=== PATIENT | female | born 1935 | race Caucasian/White ===

== ENCOUNTER 2017-02-09 15:33 | Inpatient (IN) | payer MEDICARE, BC ==
[~2017-02-09] VITALS: Ht 167.6 cm; Wt 72.5 kg
[2017-02-09] VITALS (8 sets, daily range): BP systolic 124–201; BP diastolic 61–115; BMI 25.8
[2017-02-09 18:58] LABS: BASOPHILS 0.4 % (0-2); EOSINOPHILS 0.2 % (0-7); HEMATOCRIT 41.4 % (36.0-48.0); HEMOGLOBIN 13.9 g/dL (12-16); IMMATURE GRANULOCYTES 0.3 % (0-5); LYMPHOCYTES 25.9 % (15-50); MCH 33.6 pg (26.0-34.0); MCHC 33.6 g/dL (31.0-37.0); MEAN PLATELET VOLUME 10.2 fL (7.4-10.4); MONOCYTES 8.4 % (2-11); NEUTROPHILS 64.8 % (40-80); PLATELET COUNT 229 10x3/uL (130-400); RBC 4.14 10x6/uL (4.00-5.40); RDW 13.1 % (11.5-14.5); WBC 11.6 10x3/uL (4.8-10.8)
[2017-02-09 19:11] LABS: APTT 41.7 SECONDS (22.8-39.4); INR 3.21 (0.85-1.17); PROTIME 33.1 SECONDS (11.6-15.0)
[2017-02-09 19:16] LABS: ALBUMIN 3.9 g/dL (3.4-5.0); ANION GAP 13.5 mmol/L (8-16); BILIRUBIN - TOTAL 0.5 mg/dL (0.2-1.3); CALCIUM 9.7 mg/dL (8.5-10.1); CARBON DIOXIDE 26.3 mmol/L (21.0-32.0); CREATININE - SERUM 0.8 mg/dL (0.6-1.3); POTASSIUM - SERUM 3.8 mmol/L (3.5-5.1); PROTEIN - SERUM 7.2 g/dL (6.4-8.2)
--- NOTE | 2017-02-09 19:48 | NUR ---
PATIENT ARRIVED VIA STRETCHER FROM ER. PATIENT FELL AT HOME AND HAS A BRUISED LEFT EYE, ALONG WITH LACERATION WITH STITCHES. PATIENT ALERT AND ORIENTED AT THIS TIME. PUPILS ARE ERRLA, 3MM AND BRISK. STRENGTH 5/5 IN ALL EXTREMITIES. DENIES NAUSEA OR VOMMITTING. SEE ADMISSION ASSESSMENT FOR MORE DETAILS. VSS, WILL MONITOR.
[2017-02-09] MEDS ORDERED: COUMADIN5 MG PO (20:07)
[2017-02-09] MEDS ORDERED: METOPROLOL TART25 MG PO (20:08)
[2017-02-09] MEDS ORDERED: SIMBRINZA 1%-0.28 ML EACH EYE (20:09)
[2017-02-09] MEDS ORDERED: XALATAN 0.0052.5 ML EACH EYE (20:09)
[2017-02-09] MEDS ORDERED: SYSTANE 0.3-0.4%5 ML EACH EYE (20:10)
[2017-02-09] MEDS ORDERED: ACETAMINOPHEN500 M1 PO (20:12)
[2017-02-09] MEDS ORDERED: FISH OIL 1,2001 CAP PO (20:12)
[2017-02-09] MEDS ORDERED: MULTIPLE VITAMI1 TA1 PO (20:13)
[2017-02-09] MEDS ORDERED: VITAMIN B-12500 MC1 PO (20:13)
--- NOTE | 2017-02-09 21:00 | NUR ---
NIGHT MEDS GIVEN ALONG WITH PRN BLOOD PRESSURE MEDS. DR LLAMAS CAME BY TO SEE PATIENT, ORDERS RECEIVED.
--- NOTE | 2017-02-09 23:05 | NUR ---
REASSESSMENT COMPLETE, SEE FOR DETAILS. VSS, PATIENT ALERT AND ORIENTED. RESPONDS APPROPIATELY. PUPILS ARE ERRLA, 3MM AND BRISK. DENIES N&V. STRENGTH 5/5 IN EXTREMITIES. DENIES PAIN. SEE FLOWSHEET FOR MORE DETAILS. WILL MONITOR.
[2017-02-10] VITALS (24 sets, daily range): BP systolic 112–159; BP diastolic 53–91; Ht 167.6 cm; Wt 72.5 kg
--- NOTE | 2017-02-10 01:00 | NUR ---
PATIENT RESTING WITH EYES CLOSED. RR DEEP, EVEN, AND NONLABORED. VSS.
--- NOTE | 2017-02-10 02:00 | NUR ---
PATIENT HELPED TO BEDSIDE COMMODE. VOIDED 300CC OF CLEAR YELLOW URINE.
--- NOTE | 2017-02-10 03:00 | NUR ---
REASSESSMENT COMPLETE PER FLOWSHEET, SEE FOR DETAILS. PATIENT A&O X4, PUPILS ARE ERRLA @ 3MM AND BRISK. DENIES N&V. VSS, WILL MONITOR.
--- NOTE | 2017-02-10 05:15 | NUR ---
PRN TYLENOL GIVEN FOR CHRONIC ACHING BACK PAIN.
[2017-02-10 05:16] LABS: BASOPHILS 0.5 % (0-2); EOSINOPHILS 0.8 % (0-7); HEMATOCRIT 38.9 % (36.0-48.0); HEMOGLOBIN 13.1 g/dL (12-16); IMMATURE GRANULOCYTES 0.1 % (0-5); LYMPHOCYTES 19.2 % (15-50); MCH 33.4 pg (26.0-34.0); MCHC 33.7 g/dL (31.0-37.0); MCV 99.2 fL (80.0-100.0); MONOCYTES 13.3 % (2-11); NEUTROPHILS 66.1 % (40-80); PLATELET COUNT 217 10x3/uL (130-400); RBC 3.92 10x6/uL (4.00-5.40); RDW 13.3 % (11.5-14.5); WBC 8.8 10x3/uL (4.8-10.8)
[2017-02-10 05:28] LABS: CALC OSMOLALITY 276 mosm/kg (275-300); CALCIUM 8.8 mg/dL (8.5-10.1); CARBON DIOXIDE 26.4 mmol/L (21.0-32.0); CHLORIDE - SERUM 102 mmol/L (98-107); CREATININE - SERUM 0.6 mg/dL (0.6-1.3); GLUCOSE 98 mg/dL (74-106); POTASSIUM - SERUM 3.5 mmol/L (3.5-5.1); SODIUM 138 mmol/L (136-145); UREA NITROGEN 15 mg/dL (7-18); eGFR NON AFRICAN AMERICAN > 90 mL/min (90-120)
[2017-02-10 05:39] LABS: INR 2.61 (0.85-1.17); PROTIME 28.1 SECONDS (11.6-15.0)
--- NOTE | 2017-02-10 05:58 | NUR ---
PATIENT COMPLAINING OF HAVING NAUSEA. STATES SHE FEELS LIKE SHE IS GETTING IT FROM NOT EATING IN A WHILE. JUICE GIVEN AND SALTINE CRACKERS. DID VOMIT A LITTLE JUICE BACK UP. PRN ZOFRAN GIVEN. WILL MONITOR.
[2017-02-10 13:00] LABS: BASOPHILS 0.1 % (0-2); EOSINOPHILS 0 % (0-7); HEMATOCRIT 36.9 % (36.0-48.0); HEMOGLOBIN 12.4 g/dL (12-16); IMMATURE GRANULOCYTES 0.1 % (0-5); LYMPHOCYTES 16.5 % (15-50); MCH 33.3 pg (26.0-34.0); MCHC 33.6 g/dL (31.0-37.0); MCV 99.2 fL (80.0-100.0); MEAN PLATELET VOLUME 9.9 fL (7.4-10.4); MONOCYTES 9.2 % (2-11); NEUTROPHILS 74.1 % (40-80); PLATELET COUNT 209 10x3/uL (130-400); RBC 3.72 10x6/uL (4.00-5.40); RDW 13.2 % (11.5-14.5); WBC 6.8 10x3/uL (4.8-10.8)
[2017-02-10 13:10] LABS: INR 1.12 (0.85-1.17); PROTIME 14.3 SECONDS (11.6-15.0)
--- NOTE | 2017-02-10 13:53 | NUR ---
TO CT SCANNER PER BED. ATE COUPLE PEANUT BUTTER AND CRACKERS AND FEW SIPS OF LEMON PAUMA DRINK. PO MEDS TAKEN. DR. KING CALLED GOING TO TAKE TO EMERGENCY SURGERY DUE TO INCREASE BLEED IN HEAD. PATIENT NIECE AND GRANDAUGHTER NOTIFIED. PHONE CONSENT RECEIVED. FAMILY HERE NOW. TO OR 1225 PER BED. PATIENT SLEEPY, BUT ALERT AND ORIENTATED. IV PRE OP MEDS GIVEN ORDERED. IV PATENT LEFT WRIST. VOIDED ON BEDSIDE COMMODE ONCE. POOR GAIT, COULD NOT STAND UP STRAIGHT, NEEDS ASSISTANCES OF 2 PEOPLE.
--- NOTE | 2017-02-10 14:40 | HP ---
PATIENT: WALE FRANKLIN MEDICAL RECORD: [id number] ACCOUNT: [id number] [id number] : 33 ADMISSION DATE: 02/09/17 HISTORY AND PHYSICAL EXAMINATION REASON FOR ADMISSION: Fall with head injury. HISTORY OF PRESENT ILLNESS: The patient is an 81-year-old female whose family physician, Dr. Daniel Loja. The patient has a history of chronic atrial fibrillation on Coumadin anticoagulation. She states she tripped in her home on a rug floor interface, falling forward hitting her left supraorbital ridge on the corner of the table. She was stunned, but not knocked out. She had marked bleeding from a laceration and came to the ED on the afternoon. She was evaluated there, found to be on Coumadin and a CT of the brain was performed. It showed a right parietal contrecoup injury subdural hematoma versus contusion. The patient has been neurologically intact, was admitted to the ICU for neuro checks, cardiac monitoring due to her Coumadin coagulopathy. Her INR was over 3. She denies any syncope, said she just simply tripped. PAST MEDICAL HISTORY: Chronic atrial fibrillation, ____ cardioversion times 3 in the past, peptic ulcer disease, anemia, diverticular disease, diet controlled diabetes mellitus, peripheral neuropathy. PAST SURGICAL HISTORY: Had sclerosis therapy of varicose veins in her right leg in the past. She had a colon surgery for a colovesicular fistula, incisional hernia repair, and bilateral cataract surgery, July 2012. FAMILY HISTORY: Positive for diabetes in her parents. One brother with CAD and pacemaker. SOCIAL HISTORY: She is and lives alone. She is a retired business advisor. She does not smoke cigarettes nor does she drink alcohol. CURRENT MEDICATIONS: Coumadin 5 mg daily, metoprolol tartrate 25 mg p.o. b.i.d., Lasix 40 mg p.r.n. edema, Tylenol p.r.n., vitamin B12 of 500 mg daily, fish oil 1200 mg a day, Xalatan 0.005% eyedrops 1 drop at h.s., Systane eye drops t.i.d. and Simbrinza 1.02% drops daily. ALLERGIES: None known. REVIEW OF SYSTEMS: GENERAL: She has felt well. HEENT: She has pain over her left supraorbital ridge from a recent fall, but denies recent headache, visual changes, sinus congestion, sore throat or hearing difficulty. RESPIRATORY: No SOB or cough. No palpitations, exertional chest pain, claudication, or edema. GASTROINTESTINAL: No nausea, vomiting, change in stools or blood per rectum. GENITOURINARY: No incontinence. GYNECOLOGIC: No vaginal bleeding. MUSCULOSKELETAL: Denies arthralgias. PSYCHIATRIC: Denies depressed mood. NEUROLOGIC: No history of head injury, seizures, or memory loss. PHYSICAL EXAMINATION: HISTORY AND PHYSICAL [id number] WALE FRANKLIN VITAL SIGNS: Blood pressure 153/90, heart rate 89 and irregular, weight is 165 pounds. She is afebrile. GENERAL: Alert at this time. HEENT: Normocephalic. She has a recently repaired left supraorbital ridge laceration just below her eyebrows approximately 2-1/2 inches in length. There is mild left periorbital edema. Pupils were equal ____ O.U. Visions intact. Ears clear. Throat unremarkable. NECK: No bruits or masses. CHEST: Clear throughout. HEART: Irregular rate without gallop. ABDOMEN: Soft. EXTREMITIES: 2+ pretibial edema of the knees bilaterally. NEUROLOGICAL: Oriented to person, place, and time. Cranial nerves intact. Gait was not tested. No localizing motor or sensory deficits are appreciated. INTEGUMENT: She has some bruising over her left supraorbital ridge, right shoulder and her base of the right thumb. MUSCULOSKELETAL: She has some pain in the base of the right thumb with good mobility. LABORATORY DATA: INR was over 3. Other lab is currently pending. CT shows contrecoup injury with soft tissue swelling over the left supraorbital ridge and either subdural or contusion in the right parietal area. ASSESSMENT: 1. Fall with head trauma and concussion without loss of consciousness. 2. Contrecoup injury of the brain. 3. Coumadin coagulopathy. 4. Chronic atrial fibrillation. 5. Hypertension. 6. Glaucoma. 7. Diet-controlled type 2 diabetes mellitus, history of peptic ulcer disease. PLAN: The patient admitted to the ICU for monitoring ____. Neurosurgical consult has been obtained. She said she had neurological changes. We will repeat CT emergently. We will give 5 mg of vitamin K to help reduce her INR at this time. TRANSINT:[id number] Voice Confirmation ID: [id number] DOCUMENT ID: [id number] ANABEL LLAMAS MD at 1440 CC: [id number] DICTATION DATE: 02/09/172127 VETERINARY MEAT INSPECTOR: 02/10/17 0350 ADM IN [facility] [address] [place] [address]
--- NOTE | 2017-02-10 14:50 | NUR ---
PT ARROUSES EASILY WHEN CALLED BY NAME. PT VOICED HER FULL NAME, , AND WHERE IS IS. WHEN ASKED IF HURTING ANYWHERE, PT VOICED"NO". WILL CONTINUE TO MONITOR
--- NOTE | 2017-02-10 15:30 | NUR ---
RETURNED FROM RECOVERY PER BED, AWAKES TO VERBAL STIMULI ALERT SKIN WARM AND DRY. DRESSING ON RIGHT SIDE OF HEAD AND ON TOP OF HER HEAD DRY AND INTACT. DENIES PAIN. SLEEPY. ON ROOM AIR. KEEPS REACHING UP AND TOUCHES HER HEAD REMIND HER NOT TO PULL ON DRESSING. WHEAT CATH PATENT DRAINING CLEAR YELLOW URINE. FAMILY HERE. NO NAUSEA. SCD APPLIED MONITOR A FIB. IV LEFT WRIST WITHOUT SWELLING OR REDNESS NS AT 50CC HOUR UNTIL AWAKE ENOUGH TO TAKE PO FLUIDS. HEAD OF BED ELEVATED 30 DEGREES. ON ROOM AIR. NO RESP DISTRESS. RESP DEEP AND REGULAR.
--- NOTE | 2017-02-10 19:00 | NUR ---
SHIFT ASSESSMENT COMPLETE, SEE FLOWSHEET FOR DETAILS. PATIENT SLEEPING, STILL LETHARGIC FROM SEDATION FROM SURGERY TODAY. ALERT AND ORIENTED X4, SPEECH CLEAR. CARRIES APPROPRIATE CONVERSATION. EVEN AND STRONG COMPTOMETER OPERATOR STRENGTH. ABLE TO MOVE ALL EXTREMITIES WITH EASE. PUPILS ARE ERRLA, 3MM AND BRISK. WILL MONITOR LOC CLOSELY TONIGHT. PATIENT HAS DRESSING OVER HEAD FROM RIGHT SIDED CRANIOTOMY TODAY. DRESSING C/D/I. LEFT EYE IS BRUISED AND SWOLLEN. STITCHES PRESENT. PERIPHERAL PULSES +2, SCDS ON. CONTROLLED A-FIB ON MONITOR. PATIENT ON 2L NC, SAT 98%. WILL MONITOR.
[2017-02-10 19:18] LABS: INR 1.08 (0.85-1.17); PROTIME 13.9 SECONDS (11.6-15.0)
--- NOTE | 2017-02-10 21:00 | NUR ---
EYE DROPS GIVEN. PATIENT DENIES COMPLAINT. ALERT AND ORIENTED X4. STILL LETHARGIC.
--- NOTE | 2017-02-10 23:00 | NUR ---
REASSESSMENT COMPLETE, SEE FLOWSHEET FOR DETAILS. PATIENT ALERT AND ORIENTED X4, WITH NO NEURO DEFICIT. WILL MONTIOR.
[2017-02-11] VITALS (25 sets, daily range): BP systolic 112–160; BP diastolic 54–88
--- NOTE | 2017-02-11 01:00 | NUR ---
PATIENT RESTING WITH EYES CLOSED WHEN ENTERING ROOM. AWAKENS TO VOICE. IS ALERT AND ORIENTED X4. PUPILS 3MM AND BRISK. NO CHANGE IN PATIENTS NEURO STATUS. WILL CONTINUE TO MONITOR.
--- NOTE | 2017-02-11 03:00 | NUR ---
REASSESSMENT COMPLETE PER FLOWSHEET. NO CHANGE.
[2017-02-11 04:21] LABS: BASOPHILS 0.2 % (0-2); EOSINOPHILS 0 % (0-7); HEMATOCRIT 38.2 % (36.0-48.0); HEMOGLOBIN 12.7 g/dL (12-16); IMMATURE GRANULOCYTES 0.3 % (0-5); LYMPHOCYTES 9.6 % (15-50); MCH 33.6 pg (26.0-34.0); MCHC 33.2 g/dL (31.0-37.0); MCV 101.1 fL (80.0-100.0); MEAN PLATELET VOLUME 10.1 fL (7.4-10.4); MONOCYTES 14.8 % (2-11); NEUTROPHILS 75.1 % (40-80); PLATELET COUNT 196 10x3/uL (130-400); RBC 3.78 10x6/uL (4.00-5.40); RDW 13.5 % (11.5-14.5)
[2017-02-11 04:22] LABS: WBC 12.3 10x3/uL (4.8-10.8)
[2017-02-11 04:26] LABS: CALC OSMOLALITY 272 mosm/kg (275-300); CALCIUM 8.4 mg/dL (8.5-10.1); CARBON DIOXIDE 24.9 mmol/L (21.0-32.0); CHLORIDE - SERUM 105 mmol/L (98-107); CREATININE - SERUM 0.5 mg/dL (0.6-1.3); GLUCOSE 132 mg/dL (74-106); POTASSIUM - SERUM 3.3 mmol/L (3.5-5.1); SODIUM 136 mmol/L (136-145); UREA NITROGEN 11 mg/dL (7-18); eGFR NON AFRICAN AMERICAN > 90 mL/min (90-120)
[2017-02-11 04:27] LABS: INR 1.16 (0.85-1.17); PROTIME 14.7 SECONDS (11.6-15.0)
--- NOTE | 2017-02-11 06:40 | NUR ---
PATIENT BACK FROM CT, TOLERATED WELL. PLACED BACK ON MONITOR. VSS.
--- NOTE | 2017-02-11 10:00 | OP ---
PATIENT NAME: WALE FRANKLIN MEDICAL RECORD: [id number] :31 LOCATION:[facility] D.2306 ADMISSION DATE:02/10/17 SURGEON: LONNIE KING MD DATE OF OPERATION: 02/10/2017 PREOPERATIVE DIAGNOSIS: Acute right subdural hematoma with cerebral edema. POSTOPERATIVE DIAGNOSIS: Acute right subdural hematoma with cerebral edema. PROCEDURE PERFORMED: Right craniotomy for evacuation of acute subdural hematoma. SPECIMENS: None. COMPLICATIONS: None. FINDINGS: Acute blood clot. ESTIMATED BLOOD LOSS: 75 mL. HISTORY OF PRESENT ILLNESS: Wale Franklin is an 81-year-old female, who was admitted on 02/09/2017 after a fall. She takes Coumadin for atrial fibrillation and initial CT scan revealed a very small right parietal contusion versus subdural hematoma. She was admitted and a repeat scan in the morning of 02/10/2017 showed significant progression to up to 2 cm acute right-sided subdural hematoma with 14 mm of midline shift. She was somewhat lethargic, but able to wake up and orient to self and place as well as following commands briskly. I had a discussion with the patient and her niece, who the patient instructed us to call for decision making regarding the CT scan findings and the current situation and recommendation for urgent evacuation of the subdural hematoma. Another factor in the decision was the need for anticoagulation given her active atrial fibrillation. Again, I have discussed the risks and benefits with the niece preoperatively verbally on the phone and she agreed and consented to go forth with surgery. DESCRIPTION OF PROCEDURE: Ms. Franklin was identified by anesthesia team, transferred to the operative theater. She was gently transferred over to a supine position on the operative bed where general endotracheal anesthesia commenced and all appropriate lines and tubes were placed. Please note that INR in the morning of surgery was 2.6, so the patient was given rapid reversal in the form of Kcentra at approximately 12:05 p.m. Skin incision was made approximately 1 hour later and coags drawn at the time of prepping in the operating room showed a normal INR. A timeout was performed and agreed to by those present. The patient was positioned with a shoulder roll, so the right side of her head was turned towards the ceiling. The right hemicranium was clipped free with the electric clippers. A standard reverse question alma incision was planned and marked. The area was prepped and draped in usual sterile fashion. A timeout was performed and agreed to by those present. The patient did receive 500 mg of IV Keppra as well as 2 grams of Ancef prior to the start of the procedure. Incision was infiltrated with 1% lidocaine with epinephrine. A 10 blade was used to make the skin incision down to the level of underlying bone. Reed clips and bipolar and monopolar electrocautery were used to achieve hemostasis. The myocutaneous flap was reflected anteriorly in 1 flap. This was placed in antibiotic-soaked lap sponge and reflected with towel hooks and Ray-Jonas. A high speed perforating drill was used to make 3 stephany holes OPERATIVE REPORT [id number] WALE FRANKLIN in the right hemicranium. A Vassar 3 was used to perform epidural dissection. A craniotome was used to turn a bone flap without difficulty. The underlying subdural hematoma was immediately visible and was evacuated using combination of suction irrigation and manual removal with the Vassar dissectors. The subdermal space was explored circumferentially from the bone flap and all accessible and safely accessible blood clot was evacuated. There was a contusion noted in the right parietal lobe grossly with a small amount of subarachnoid hemorrhage in that location. A copious amount of irrigation was irrigated throughout the field. There was no significant hemorrhage prior to closure. The bone was re-plated with the Cocodrilo Dog cranial fixation set with self-drilling screws. It was secured to the cranium and a copious amount of irrigation was again used. The bone flap had been stored in antibiotic irrigation throughout portion of the procedure. Gelfoam patties were laid into the exposed craniotomy defects as well as the right parietal stephany hole. Vancomycin powder was then sprinkled into the scalp and bone and soft tissues. The galea was reapproximated and closed with a combination of inverted interrupted 2-0 and 3-0 Vicryl sutures. The skin was reapproximated with lilli. There was no appreciable scalp hemorrhage necessitating soft tissue drain at the time of closure. The patient was then cleaned with a wet and dry dressing and skin dressing was placed. She was returned to anesthesia team for reversal and extubation. She tolerated the procedure well without any apparent complications. All sponge and needle counts were correct at the end the case. I updated the niece and nephew immediately postoperatively in the waiting room regarding the course of procedure after conclusion of procedure. TRANSINT:[id number] Voice Confirmation ID: [id number] DOCUMENT ID: [id number] LONNIE KING MD at 1000 CC: [id number] DICTATION DATE: 02/10/17 1428 WATCH MANUFACTURING SUPERVISOR: 02/10/17 1821 ADM IN [facility] [address] [place] [address]
--- NOTE | 2017-02-11 18:11 | NUR ---
DRANK A CUP OF CHICKEN BROTH FOR SUPPER TOLERATED WELL NO NAUSEA OR CHOKING HAD 2 JELLOS TODAY AND 2 APPLE JUICE, 2 CUPS OF WATER TOLERATED WELL. STANDING BETTER TODAY TO GO TO BSC THAN YESTERDAY. MUCH MORE ALERT AND TALKATIVE TODAY. SOME DULL PAIN BETTER WIT TYLENOL. DOES NOT LIKE TO TAKE PAIN MEDS PATIENT STATES. SCD ON LOWER LEGS. IV PATENT. WHEAT DRAINING CLEAR YELLOW URINE. MONITOR ATRIAL FIB. APRESOLINE GIVEN ONCE FOR ELEVATED BLOOD PRESSURE
--- NOTE | 2017-02-11 19:50 | NUR ---
PT RESTING PEACEFULLY IN BED. ORIENTED X3. CRANIAL INCISION, DRESSINGS CDI. LEFT EYE LACERATION, STITCHES IN PLACE, BRUISING AROUND THE EYE. TONGUE MIDLINE, MUCOUS MEMBRANES MOIST. PERRLA, PUPIL SIZE 3MM, BRISK. NC @ 2L. EQUAL HAND MANAGER RETENTION, STONG. SLIGHT WEAKNESS WHEN REACHING TO SHOPPER ITEMS. BOWEL SOUNDS ACTIVE X4. RADIAL AND PEDAL PULSES PALP, +2. SLIGHT WEAKNESS IN THE LEGS. PROVIDED PT WITH AN EXTRA BLANKET AND WATER. CALL LIGHT IN REACH. BED IN LOWEST POSITION. NO FURTHER REQUEST.
--- NOTE | 2017-02-11 21:00 | NUR ---
PT RESTING PEACEFULLY. CALL LIGHT IN REACH. WILL CONTINUE TO MONITOR.
--- NOTE | 2017-02-11 23:10 | NUR ---
REPOSITIONED PT FOR COMFORT. DENIES ANY NEEDS AT THIS TIME. WILL CONTINUE TO MONITOR.
[2017-02-12] VITALS (24 sets, daily range): BP systolic 112–173; BP diastolic 60–110
--- NOTE | 2017-02-12 01:07 | NUR ---
PT RESTING PEACEFULLY. NEURO CHECK DONE. NO CHANGES NOTED. REPOSITIONED FOR COMFORT. CALL LIGHT IN REACH. WILL CONTINUE TO MONITOR.
--- NOTE | 2017-02-12 02:09 | NUR ---
PT SLEEPING. VSS. CALL LIGHT IN REACH. WILL CONTINUE TO MONITOR.
--- NOTE | 2017-02-12 03:15 | NUR ---
REASSESSMENT COMPLETE. VSS. PT DENIES ANY REQUEST AT THIS TIME. WILL CONTINUE TO MONITOR.
[2017-02-12 03:45] LABS: BASOPHILS 0.2 % (0-2); EOSINOPHILS 0.2 % (0-7); HEMATOCRIT 36.8 % (36.0-48.0); HEMOGLOBIN 12.1 g/dL (12-16); IMMATURE GRANULOCYTES 0.3 % (0-5); LYMPHOCYTES 16.7 % (15-50); MCH 33.2 pg (26.0-34.0); MCHC 32.9 g/dL (31.0-37.0); MCV 100.8 fL (80.0-100.0); MEAN PLATELET VOLUME 10.3 fL (7.4-10.4); MONOCYTES 12.6 % (2-11); PLATELET COUNT 194 10x3/uL (130-400); RBC 3.65 10x6/uL (4.00-5.40); RDW 13.5 % (11.5-14.5); WBC 13.1 10x3/uL (4.8-10.8)
[2017-02-12 03:52] LABS: INR 1.21 (0.85-1.17); PROTIME 15.2 SECONDS (11.6-15.0)
[2017-02-12 03:53] LABS: CALC OSMOLALITY 275 mosm/kg (275-300); CALCIUM 8.4 mg/dL (8.5-10.1); CARBON DIOXIDE 25.9 mmol/L (21.0-32.0); CHLORIDE - SERUM 104 mmol/L (98-107); CREATININE - SERUM 0.5 mg/dL (0.6-1.3); GLUCOSE 108 mg/dL (74-106); POTASSIUM - SERUM 3.2 mmol/L (3.5-5.1); SODIUM 138 mmol/L (136-145); UREA NITROGEN 9 mg/dL (7-18); eGFR NON AFRICAN AMERICAN > 90 mL/min (90-120)
--- NOTE | 2017-02-12 05:15 | NUR ---
WHEAT CARE COMPLETED. REPOSITIONED FOR COMFORT. MOVED PULSE OX TO THE L EAR. SLOWED DOWN KCL TO 50 ML/HR. PT COMPLAINING OF BURING SENSATION IN HER WRIST. CALL LIGHT IN REACH. NO FURTHER REQUESTS.
--- NOTE | 2017-02-12 10:32 | NUR ---
Nutrition Follow Up: Pt is eating 50% meal avg on a regular diet. Wt stable. +BM 02/11/17. Labs reviewed. Meds noted. Rec continue current diet. RD will continue to monitor pt progress.
--- NOTE | 2017-02-12 17:09 | NUR ---
0800 AM ASSESMENT IS COMPLETE SEE FLOW SHEET FOR FINDINGS.. PT IS EASILY ROUSED AND IS ORIENTED X3 THERE IS A LARGE DRESSING ON HER HEAD CDI WITH RACCOON EYE .. STICHES OVER HER LEFT EYE INTO THE BROW.. 0830 BREAKFAST SERVED AND PT IS FED STATING THAT SHE IS HAVING A HARD TIME SEEING.. [address] KING IN TO SEE PT REMOVED THE DRESSING FROM THE PTS HEAD STICHES ARE IN PLACE.. 1200 GRAND DAUGHTER IN TO SEE PT UPDATE IS GIVEN.. SHE ASSISTED PT WITH LUNCH 1330 VISITOR GONE AND PT IS SLEEPING AT THIS TIME.. 1500 WITHOUT VISITOR.. 1630 I AND O DONE .. DIET SAVED FOR GRAND DAUGHTER TO ASSIST PT WITH..
--- NOTE | 2017-02-12 18:33 | NUR ---
1800 FAMILY AT THE BEDSIDE AND DIET ASSIST FFJEROMY GRAND DAUGHTER..
--- NOTE | 2017-02-12 19:41 | NUR ---
PT SITTING UP IN BED. FED HER CHEESECAKE PER REQUEST. STATES THAT SHE FEELS BETTER TODAY. VSS. SHIFT ASSESSMENT COMPLETED, SEE FLOWSHEET. JESSICA ON HEAD ARE INTACT WITH NO S/S OF INFECTION. LEFT SUPRAORBITAL STITCHES CDI. ALERT AND ORIENTED X3. EQUAL HANDGRIPS AND FOOT PUMPS. DENIES ANY FURTHER REQUESTS. WILL CONTINUE TO MONITOR.
--- NOTE | 2017-02-12 21:00 | NUR ---
PT RESTING IN BED. TAUGHT HER ABOUT LOPRESSOR AND WHY SHE WAS TAKING IT. PT VERBALIZED UNDERSTANDING. COLD CLOTH ON EYES PER REQUEST. EYE DROPS ADMINISTERED. CLEANED UP PT ROOM. NO FURTHER REQUESTS. CALL LIGHT IN REACH. WILL CONTINUE TO MONITOR.
--- NOTE | 2017-02-12 23:00 | NUR ---
NEURO CHECK COMPLETED. NO CHANGES NOTED. PT STATES THAT SHE IS VERY TIRED. BED IN LOWEST POSITION. CALL LIGHT IN REACH. WILL CONTINUE TO MONITOR.
--- NOTE | 2017-02-12 23:58 | NUR ---
PT REPOSITIONED ON HER L SIDE PER REQUEST. BED IN LOWEST POSITION. CALL LIGHT IN REACH. NO FURTHER REQUESTS.
[2017-02-13] VITALS (23 sets, daily range): BP systolic 134–166; BP diastolic 62–97
--- NOTE | 2017-02-13 01:00 | NUR ---
PT RESTING PEACEFULLY. REPOSITIONED ON HER BACK. VSS. CALL LIGHT IN REACH. WILL CONTINUE TO MONITOR.
--- NOTE | 2017-02-13 03:00 | NUR ---
REASSESSMENT COMPLETE. VSS. NO COGNITIVE CHANGES. ALERT AND ORIENTED X3. EQUAL HAND RIVER EXPEDITION GUIDE AND FOOT PUMPS, ABLE TO FOLLOW COMMANDS. REPOSITIONED FOR COMFORT. BED IN LOWEST POSITION, CALL LIGHT IN REACH. WILL CONTINUE TO MONITOR.
[2017-02-13 04:10] LABS: INR 1.21 (0.85-1.17); PROTIME 15.1 SECONDS (11.6-15.0)
[2017-02-13 04:28] LABS: BASOPHILS 0.2 % (0-2); EOSINOPHILS 0.5 % (0-7); IMMATURE GRANULOCYTES 0.2 % (0-5); MCH 33.4 pg (26.0-34.0); MCHC 33.3 g/dL (31.0-37.0); MCV 100.3 fL (80.0-100.0); MEAN PLATELET VOLUME 10.2 fL (7.4-10.4); MONOCYTES 11.6 % (2-11); NEUTROPHILS 70.5 % (40-80); PLATELET COUNT 194 10x3/uL (130-400); RBC 3.29 10x6/uL (4.00-5.40); RDW 13.3 % (11.5-14.5); WBC 10.9 10x3/uL (4.8-10.8)
[2017-02-13 04:41] LABS: CALC OSMOLALITY 272 mosm/kg (275-300); CALCIUM 8.2 mg/dL (8.5-10.1); CARBON DIOXIDE 25.2 mmol/L (21.0-32.0); CHLORIDE - SERUM 104 mmol/L (98-107); CREATININE - SERUM 0.5 mg/dL (0.6-1.3); GLUCOSE 110 mg/dL (74-106); PHOSPHOROUS 1.9 mg/dL (2.5-4.9); SODIUM 137 mmol/L (136-145); UREA NITROGEN 8 mg/dL (7-18); eGFR NON AFRICAN AMERICAN > 90 mL/min (90-120)
[2017-02-13 04:44] LABS: POTASSIUM - SERUM 2.9 mmol/L (3.5-5.1)
--- NOTE | 2017-02-13 05:30 | NUR ---
WHEAT CARE PROVIDED. POTASSIUM 2.9, GAVE KCL 40 MEQ PO WITH ORANGE JUICE. PUT ORDER IN TO RECHECK POTASSIUM AT 0900. PT TOLERATED PROCEDURE WELL. COLD WASHCLOTH APPLIED TO PT EYES FOR COMFORT. CALL LIGHT IN REACH. BED IN LOWEST POSITION. WILL CONTINUE TO MONITOR.
--- NOTE | 2017-02-13 06:18 | NUR ---
PT RESTING PEACEFULLY. CHANGED PRIMARY IV TUBING. NO NEEDS AT THIS TIME.
--- NOTE | 2017-02-13 07:00 | NUR ---
REEC'D REPORT AND RESUMED CARE, AAO, VSS, O2 VIA NC AT 2L, SAT 96%, DENIES PAIN, STATES " I AM JUST UNCOMFORTABLE", REPOSITION UP AND TO BACK, HEAD WITH JESSICA EXTENDING FROM THE OCCIPITAL TO TEMPORAL LOBE, SUTURES AR IN PLACE OVER THE LEFT BROW, LEFT WRIST PIV WITH NS AT 50 CC/HR, NEURO CHECK COMPLETED PER FLOWSHEET, BRUISING NOTED TO FILEMON GENAOEY TO GRAVITY DRAINING CLEAR YELLOW DRAINAGE, ASSESSMENT COMPLETED PER FLOWSHEET, NO NEEDS AT THIS TIME
--- NOTE | 2017-02-13 07:45 | NUR ---
INCONTINENT OF DIARRHEA STOOL, PLACED WITH ASSIST TO BSC, LARGE FORMED STOOL TO LUCAS, SKINCARE AND COMPLETE LINEN CHANGED, BTB REPOSITIONED UP AND TO BACK REPOSITIONED UP AND TO BACK,
--- NOTE | 2017-02-13 09:00 | NUR ---
FAMILY AT BEDSIDE, SPOKE WITH BELL ALAS, AND DES RE: POC, NO OTHER NEEDS AT THIS TIME
--- NOTE | 2017-02-13 10:50 | NUR ---
ECHO COMPLETED BY CARDIO NEURO TECH
--- NOTE | 2017-02-13 11:14 | NUR ---
TO RADIOLOGY VIA BED WITH PERSONNEL X1 FOR HEAD CT, AWAKE AND CONFUSED
--- NOTE | 2017-02-13 14:28 | NUR ---
C/O OF HEADACHE 01/24, TYLENOL 500 MG PO GIVEN PER MAR
--- NOTE | 2017-02-13 18:00 | NUR ---
FAMILY AT BEDSIDE, STATUS UPDATED, VOICES NO NEEDS AT THIS TIME
--- NOTE | 2017-02-13 19:00 | NUR ---
ASSISTED PT TO BSC FOR BM. PT BACK IN BED. SHIFT ASSESSMENT COMPLETED. NEURO CHECK COMPLETED. ALERT AND ORIENTED X3. SPEEH IS CLEAR. INCISION ON HEAD IS CDI. NO S/S OF INFECTION. LACERATION ON LEFT SUPRAORBITAL BONE IS CDI, STITCHES INTACT. PUPILS 3MM, BRISK REACTION TO LIGHT. NC @ 2 L/MIN. S1S2 AUDIBLE. BREATH SOUNDS IN ALL LOBES CLEAR. BS ACTIVE X4. RADIAL AND PEDAL PULSES PALP +2. SCD RELEASED AND SKIN ASSESSED, WNL. BED IN LOWEST POSITION. CALL LIGHT IN REACH. NO FURTHER REQUESTS.
--- NOTE | 2017-02-13 19:15 | NUR ---
WHEN PT GOT BACK INTO BED FROM [facility] SHE PULLED HER IV OUT. ATTEMPTED TO RESTORE IV ACCESS X3. UNABLE TO OBTAIN. PT IS ABLE TO TAKE PO MEDICATION WITH NO DIFFICULTIES.
--- NOTE | 2017-02-13 21:00 | NUR ---
PT RESTING IN BED. NO REQUESTS AT THIS TIME. CALL LIGHT IN REACH. BED IN LOWEST POSITION. WILL CONTINUE TO MONITOR.
--- NOTE | 2017-02-13 23:00 | NUR ---
PT STATED THAT HER R CONFUCIANIST AND R EAR WERE HURTING. RATED PAIN A 2/10. ACCEPTABLE PAIN LEVEL IS A 0/10. ADMINISTERED TYLENOL. WILL REASSESS IN AN HOUR. TV ON, BED IN LOWEST POSITION, CALL LIT IN REACH. NO FURTHER REQUESTS.
[2017-02-14] VITALS (11 sets, daily range): BP systolic 145–170; BP diastolic 64–95
--- NOTE | 2017-02-14 01:00 | NUR ---
PT RESTING IN BED. CALL LIGHT IN REACH. BED IN LOWEST POSITION. WILL CONTINUE TO MONITOR.
--- NOTE | 2017-02-14 03:05 | NUR ---
REASSESSMENT COMPLETE. PT RESTING PEACEFULLY. TV ON. CALL LIGHT IN REACH. BED IN LOWEST POSITION.
[2017-02-14 04:20] LABS: BASOPHILS 0.2 % (0-2); EOSINOPHILS 2.6 % (0-7); HEMATOCRIT 32.9 % (36.0-48.0); HEMOGLOBIN 10.9 g/dL (12-16); IMMATURE GRANULOCYTES 0.2 % (0-5); LYMPHOCYTES 21.8 % (15-50); MCHC 33.1 g/dL (31.0-37.0); MCV 99.7 fL (80.0-100.0); MEAN PLATELET VOLUME 10.1 fL (7.4-10.4); MONOCYTES 12.2 % (2-11); PLATELET COUNT 217 10x3/uL (130-400); RDW 13.1 % (11.5-14.5)
[2017-02-14 04:39] LABS: CALC OSMOLALITY 274 mosm/kg (275-300); CARBON DIOXIDE 27.3 mmol/L (21.0-32.0); CHLORIDE - SERUM 105 mmol/L (98-107); CREATININE - SERUM 0.5 mg/dL (0.6-1.3); GLUCOSE 102 mg/dL (74-106); MAGNESIUM - SERUM 1.8 mg/dL (1.8-2.4); SODIUM 138 mmol/L (136-145); UREA NITROGEN 9 mg/dL (7-18); eGFR NON AFRICAN AMERICAN > 90 mL/min (90-120)
[2017-02-14 04:46] LABS: PHOSPHOROUS 2.9 mg/dL (2.5-4.9); POTASSIUM - SERUM 2.9 mmol/L (3.5-5.1)
--- NOTE | 2017-02-14 05:05 | NUR ---
WHEAT CARE COMPLETED. REPOSITIONED PT FOR COMFORT. POTASSIUM CRITICAL AT 2.9. ADMINISTERED KCL PO. PT TOLERATED IT WELL. CALL LIGHT IN REACH. WILL CONTINUE TO MONITOR.
--- NOTE | 2017-02-14 08:00 | NUR ---
MEAL TRAY BROGHT TO PT AND AM MEDICATION GIVE WITH NO ISSUES.
--- NOTE | 2017-02-14 09:00 | NUR ---
AT BEDSIDE. STATUS UPDATED. NO QUESTIONS OR NEEDS AT THIS TIME.
--- NOTE | 2017-02-14 09:25 | NUR ---
RECIEVED REPORT FROM OFF COMING NURSE. PT AWAKE IN BED WITH NO OBVIOUS SIGNS OF DISTRESS. SUTURES TO L BROW AND STAPLE TO FROM OCCIPITAL LOBE TO TEMPORAL LOBE. NO REDDNESS AND JESSICA WELL APPOXIMATED. NO DRAINAGE NOTED. DENIES PAIN VERBALLY. FC IN PLACE WITH YELLOW CLEAR URINE. TELEMETY SHOWS CONTROLLED AFIB. NO SIGNS OF ECTOPY. ASSESSMENT COMPLETE PER FLOW SHEET. CALL LIGHT IN REACH. BED IN LOWEST POSITION.
--- NOTE | 2017-02-14 09:36 | NUR ---
Nutrition follow-up: Diet: REgular as tolerated PO intake ~50% of meals Labs reviewed Wt: 160# +BM Pt out to floor today RDN following.
--- NOTE | 2017-02-14 10:20 | NUR ---
REPORT GIVEN TO STAR ON MEDSURG.
--- NOTE | 2017-02-14 10:30 | NUR ---
PATIENT RECEIVED TO FLOOR FROM ICU VIA BED. PATIENT ALERT IN BED. NO SIGNS OF DISTRESS NOTED. JESSICA INTACT TO HEAD AND LEFT EYEBROWN. BRUISING NOTED TO FACE. ORIENTED TO ROOM. SIDE RAILS UP X2. BED IN LOW POSITION. CALL LIGHT IN REACH. SCDS ON BILATERALLY. BED ALARM ON.
--- NOTE | 2017-02-14 10:34 | NUR ---
PT TRANSFERED WITH 0 S/SX OF DISTRESS/DISCOMFORT NOTED. BREATHING NORMAL AND UNLABORED. NURSE AT BED SIDE. CALL LIGHT IN REACH. RM [id number]
--- NOTE | 2017-02-14 10:40 | NUR ---
TELEMETRY PLACED ON PATIENT PER ORDER. ASSIGNMENT DESK ASSISTANT REPORTS 83 CONTROL A-FIB
--- NOTE | 2017-02-14 12:50 | NUR ---
PATIENT ASSIST BACK TO BED FROM RESTROOM ASSIST X2. POSITIONED IN BED FOR COMFORT. DENIES NEEDS. SIDE RAILS UP X2. BED IN LOW POSITION. CALL LIGHT IN REACH. BED ALARM ON.
--- NOTE | 2017-02-14 14:08 | NUR ---
PATIENT ALERT IN BED WATCHING TV. NO SIGNS OF DISTRESS NOTED. SCHEDULED MEDICATION ADMINISTERED. SIDE RAILS UP X2. BED IN LOW POSITION. CALL LIGHT IN REACH. BED ALARM ON.
--- NOTE | 2017-02-14 15:52 | NUR ---
Patient Name: WALE FRANKLIN Admission Status: ER Accout number: [id number] Admission Date: 02-10-2017 : 1935 Admission Diagnosis:TRAUM SUBDR HEM W/O LOSS OF CONSCIOUSNESS, INIT Attending: JEREMÍAS Current LOS: 4 Anticipated DC Date: Planned Disposition: Inpatient Rehab Facility Primary Insurance: MEDICARE A & B Discharge Planning Comments: CM NOTE: CM met with patient who states she fell at home where her Granddaughter Beth lives with her. She has multiple family members who live on the same property. She stated that she is very independent at home and denies any DME. She states she has 5 steps with a rail going inside to her house. She has a walk in shower and does not uses any type of assistive device. She is open to an in patient rehab if MD feels like she needs it. CM will continue to follow and assist as needed with discharge planning/needs PCP: Juan Carlos Pharmacy: [facility] in [place] (granddarlin) Metropolitan Editor: Rosemarie Green * Is the patient Alert and Oriented? Yes 0 * How many steps to enter\exit or inside your home? 5 0 * PCP JUAN CARLOS 0 * Pharmacy [facility] IN [place] 0 * Preadmission Environment Home with Family 0 * ADLs Independent 0 * Equipment None 0 * List name and contact numbers for known caregivers / representatives who currently or will assist patient after discharge: NATALIE JONES 0 * Community resources currently utilized None 0 * Additional services required to return to the preadmission environment? Yes 0 * Can the patient safely return to the preadmission environment? No 0 * Has this patient been hospitalized within the prior 30 days at any hospital? No 0 Grand Total: 0
--- NOTE | 2017-02-14 17:30 | NUR ---
ALERT IN BED EATING DINNER. TOLERATING WELL. DENIES NEEDS. SIDE RAILS UP X2. BED IN LOW POSITION. CALL LIGHT IN REACH.
--- NOTE | 2017-02-14 19:45 | NUR ---
ADMINISTERED TYLENOL FOR 3/10 PAIN. PATIENT DENIES OTHER NEEDS AT THIS TIME. BED IN LOWEST POSITION, CALL LIGHT WITHIN REACH, AND BED ALARM ON. ENCOURAGED THE PATIENT TO CALL IF SHE HAS FURTHER NEEDS.
[2017-02-15] VITALS: BP 148/80
[2017-02-15 04:00] VITALS: BP 144/55
[2017-02-15 05:54] LABS: BASOPHILS 0.6 % (0-2); EOSINOPHILS 3.3 % (0-7); HEMATOCRIT 35.2 % (36.0-48.0); HEMOGLOBIN 11.7 g/dL (12-16); IMMATURE GRANULOCYTES 0.3 % (0-5); LYMPHOCYTES 31.7 % (15-50); MCH 33.1 pg (26.0-34.0); MCHC 33.2 g/dL (31.0-37.0); MCV 99.4 fL (80.0-100.0); MEAN PLATELET VOLUME 9.8 fL (7.4-10.4); MONOCYTES 13.2 % (2-11); NEUTROPHILS 50.9 % (40-80); PLATELET COUNT 256 10x3/uL (130-400); RBC 3.54 10x6/uL (4.00-5.40)
[2017-02-15 06:23] LABS: CALC OSMOLALITY 277 mosm/kg (275-300); CALCIUM 8.9 mg/dL (8.5-10.1); CARBON DIOXIDE 27.5 mmol/L (21.0-32.0); CHLORIDE - SERUM 106 mmol/L (98-107); CREATININE - SERUM 0.5 mg/dL (0.6-1.3); GLUCOSE 101 mg/dL (74-106); MAGNESIUM - SERUM 1.9 mg/dL (1.8-2.4); PHOSPHOROUS 3.2 mg/dL (2.5-4.9); SODIUM 140 mmol/L (136-145); UREA NITROGEN 10 mg/dL (7-18); eGFR NON AFRICAN AMERICAN > 90 mL/min (90-120)
[2017-02-15 06:36] LABS: POTASSIUM - SERUM 3.7 mmol/L (3.5-5.1)
[2017-02-15 07:53] VITALS: BP 179/75
--- NOTE | 2017-02-15 09:07 | NUR ---
02/15/2017 9:06 DCP: Discharge Planning Rehab Prescreen ordered. Spoke with Cayla in rehab. Waiting determination. CM will follow.
--- NOTE | 2017-02-15 11:48 | NUR ---
02/15/2017 11:47 DCP: Discharge Planning Rec'd call from Val with rehab - patient has been accepted and can transfer this afternoon. Waiting bed assignment.
[2017-02-15 12:32] VITALS: BP 151/81
--- NOTE | 2017-02-15 12:35 | NUR ---
PATIENT SITTING UP IN THE CHAIR EATING LUNCH. PATIENT DENIES NEEDS. CALL LIGHT IN REACH.
--- NOTE | 2017-02-15 14:27 | NUR ---
Rehab Prescreening Consult recieved and the patient was visited. She meets criteria and desires to participate in the required therapy in order to get back home. She will be accepted today if physician agrees. Val Selby RN Clinical Liaison, Rehab
--- NOTE | 2017-02-15 15:22 | NUR ---
CALLED REPORT TO POLO, IN REHAB
--- NOTE | 2017-02-15 16:15 | NUR ---
PATIENT'S NEICE IN THE ROOM, TOLD HER PATIENT'S ROOM NUMBER IN REHAB. THE PATIENT GAVE HER A LIST OF FAMILY MEMEBERS TO NOTIFY, SHE SAID SHE WILL. ASSISTED PATIENT TO THE BATHROOM, PATIENT VOIDED. DISCHARGE INSTRUCTIONS COMPLETED WITH PATIENT. PATIENT DENIES QUESTIONS.
--- NOTE | 2017-02-15 16:26 | NUR ---
TOOK PATIENT TO REHAB VIA WHEELCHAIR.
== END 2017-02-15 16:26 | DRG 25 ==
LOC: D.ER 15:33 → D.ICU 18:26 → OBSVTIME 19:48 → D.ICU 02-10 12:00 → D.MS 02-14 10:29
PROVIDERS: Emergency Medicine; Neurological Surgery; ADMIT Family Medicine
PROC: 00C40ZZ Extirpation of Matter from Intracranial Subdural Space, Open Approach (ICD-10-PCS; principal; 2017-02-10 12:00)
DX: S06.5X0A Traumatic subdural hemorrhage without loss of consciousness, initial encounter (principal); S06.1X0A Traumatic cerebral edema without loss of consciousness, initial encounter; D68.9 Coagulation defect, unspecified; W19.XXXA Unspecified fall, initial encounter; I48.2 Chronic atrial fibrillation; K27.9 Peptic ulcer, site unspecified, unspecified as acute or chronic, without hemorrhage or perforation; D64.9 Anemia, unspecified; E11.42 Type 2 diabetes mellitus with diabetic polyneuropathy; K57.90 Diverticulosis of intestine, part unspecified, without perforation or abscess without bleeding; E87.6 Hypokalemia; I10 Essential (primary) hypertension; H40.9 Unspecified glaucoma

== ENCOUNTER 2017-02-15 15:53 | Inpatient (IN) | payer MEDICARE, BC ==
[~2017-02-15] VITALS: Ht 167.6 cm; Wt 74.8 kg
[~2017-02-15 15:53] MED LIST: ACETAMINOPHEN500 M1 PO; COUMADIN5 MG PO; FISH OIL 1,2001 CAP PO; METOPROLOL TART25 MG PO; MULTIPLE VITAMI1 TA1 PO; SIMBRINZA 1%-0.28 ML EACH EYE; SYSTANE 0.3-0.4%5 ML EACH EYE; VITAMIN B-12500 MC1 PO; XALATAN 0.0052.5 ML EACH EYE
[2017-02-15 16:41] VITALS: BP 170/80; BMI 26.7
[2017-02-15 17:47] LABS: BASOPHILS 0.7 % (0-2); EOSINOPHILS 2.1 % (0-7); HEMATOCRIT 36.9 % (36.0-48.0); HEMOGLOBIN 12.2 g/dL (12-16); IMMATURE GRANULOCYTES 0.2 % (0-5); LYMPHOCYTES 27.7 % (15-50); MCH 33.3 pg (26.0-34.0); MCHC 33.1 g/dL (31.0-37.0); MCV 100.8 fL (80.0-100.0); MEAN PLATELET VOLUME 9.7 fL (7.4-10.4); MONOCYTES 16.6 % (2-11); NEUTROPHILS 52.7 % (40-80); PLATELET COUNT 221 10x3/uL (130-400); RBC 3.66 10x6/uL (4.00-5.40); RDW 13.2 % (11.5-14.5); WBC 8.2 10x3/uL (4.8-10.8)
--- NOTE | 2017-02-15 17:55 | NUR ---
SITTING UP IN BED EAT IN SUPPER. DENIES NEEDS OR C/O. CALL LIGHT IN REACH
[2017-02-15 18:06] LABS: CALC OSMOLALITY 277 mosm/kg (275-300); CALCIUM 8.9 mg/dL (8.5-10.1); CHLORIDE - SERUM 103 mmol/L (98-107); CREATININE - SERUM 0.6 mg/dL (0.6-1.3); GLUCOSE 93 mg/dL (74-106); POTASSIUM - SERUM 4.1 mmol/L (3.5-5.1); SODIUM 139 mmol/L (136-145); UREA NITROGEN 13 mg/dL (7-18); eGFR NON AFRICAN AMERICAN > 90 mL/min (90-120)
[2017-02-15 19:10] VITALS: BP 170/80
--- NOTE | 2017-02-15 20:10 | NUR ---
GRANDDAUGHTER COME TO VISIT AND DO HAIR CUT FOR PT.
--- NOTE | 2017-02-16 01:05 | NUR ---
PT REST QUIETLY IN BED, EYE CLOSE, BED LOW.
[2017-02-16 05:22] LABS: BASOPHILS 0.6 % (0-2); EOSINOPHILS 2.6 % (0-7); HEMATOCRIT 37.1 % (36.0-48.0); HEMOGLOBIN 12.5 g/dL (12-16); IMMATURE GRANULOCYTES 0.7 % (0-5); LYMPHOCYTES 26.5 % (15-50); MCH 33.1 pg (26.0-34.0); MCHC 33.7 g/dL (31.0-37.0); MEAN PLATELET VOLUME 10.7 fL (7.4-10.4); MONOCYTES 15.5 % (2-11); NEUTROPHILS 54.1 % (40-80); PLATELET COUNT 222 10x3/uL (130-400); RBC 3.78 10x6/uL (4.00-5.40)
[2017-02-16 05:23] LABS: MCV 98.1 fL (80.0-100.0)
[2017-02-16 05:35] LABS: CALC OSMOLALITY 280 mosm/kg (275-300); CALCIUM 9.1 mg/dL (8.5-10.1); CARBON DIOXIDE 24.2 mmol/L (21.0-32.0); CHLORIDE - SERUM 105 mmol/L (98-107); CREATININE - SERUM 0.5 mg/dL (0.6-1.3); GLUCOSE 112 mg/dL (74-106); POTASSIUM - SERUM 3.6 mmol/L (3.5-5.1); SODIUM 141 mmol/L (136-145); UREA NITROGEN 9 mg/dL (7-18); eGFR NON AFRICAN AMERICAN > 90 mL/min (90-120)
[2017-02-16 05:38] LABS: INR 1.14 (0.85-1.17); PROTIME 14.4 SECONDS (11.6-15.0)
[2017-02-16 07:57] VITALS: BP 155/79
[2017-02-16 14:34] VITALS: Ht 167.6 cm; Wt 74.8 kg
[2017-02-16 19:09] VITALS: BP 140/72
--- NOTE | 2017-02-16 20:00 | NUR ---
PT. IN BED WITH HOB UP FOR COMFORT AND IS WATCHING TV. ASSESSMENT COMPLETED. PT. WOULD LIKE TYLENOL TONIGHT SO SHE WILL BE ABLE TO SLEEP MORE COMFORTABLY. NO VOICED NEEDS AT THIS TIME AND SHE HAS HER CALL LIGHT WITHIN REACH.
--- NOTE | 2017-02-16 23:04 | NUR ---
PT. IN BED LYING ON HER SIDE WITH EYES CLOSED AND RESP. DEEP AND EVEN. CALL LIGHT WITHIN REACH.
--- NOTE | 2017-02-17 03:00 | NUR ---
PT. IN BED LYING ON HER LEFT SIDE WITH EYES CLOSED AND RESP. DEEP AND EVEN. CALL LIGHT WITHIN REACH.
[2017-02-17 05:55] LABS: INR 1.03 (0.85-1.17); PROTIME 13.3 SECONDS (11.6-15.0)
--- NOTE | 2017-02-17 06:39 | NUR ---
PT. WAS ALREADY AWAKE THIS MORNING BY PHYSICIAN LIAISON AND PT. DENIES ANY NEEDS AT THIS TIME AND HER CALL LIGHT IS WITHIN REACH.
--- NOTE | 2017-02-17 08:00 | NUR ---
SHIFT ASSMT COMPLETED.INCISIONS TO SCALP WITH JESSICA INTACT.BREAKFAST GIVEN.CL IN REACH.
[2017-02-17 09:28] VITALS: BP 164/72
--- NOTE | 2017-02-17 12:00 | NUR ---
EATING LUNCH.DENIES NEEDS.
--- NOTE | 2017-02-17 16:00 | NUR ---
RESTING QUIETLY.DENIES NEEDS.
[2017-02-17 19:28] VITALS: BP 111/90
--- NOTE | 2017-02-17 20:00 | NUR ---
PT IN BED WITH HOB UP FOR COMOFRT. RESTING QUIETLY. HEAD INCISION WITH JESSICA. LEFT EYEBROW SUTURES. LEFT SIDE OF FACE BRUISING. RIGHT ELBOW. DRESSING C/D/I. MIN. ASSIST. NO 02. NO IV. BED ALARM ON. BED IN LOWEST POSITION AND CALL LIGHT WITHIN REACH.
--- NOTE | 2017-02-18 | NUR ---
PT IN BED WITH HOB UP FOR COMFORT. EYES CLOSED. CHEST RISING AND FALLING. BED IN LOWEST POSITION AND CALL LIGHT WITHIN REACH.
--- NOTE | 2017-02-18 03:36 | NUR ---
pt resting quietly, no s/s of acute distress. respirations regular and unlabored.
--- NOTE | 2017-02-18 03:39 | NUR ---
lilli intact, incision well approximated without redness or drainage.
[2017-02-18 05:57] LABS: INR 1.07 (0.85-1.17); PROTIME 13.8 SECONDS (11.6-15.0)
--- NOTE | 2017-02-18 08:00 | NUR ---
SHIFT ASSMT COMPLETED.MEAL TRAY GIVEN.CL IN REACH.DENIES NEEDS.
[2017-02-18 08:18] VITALS: BP 160/84
--- NOTE | 2017-02-18 09:57 | RHP ---
PATIENT: WALE FRANKLIN MEDICAL RECORD: [id number] ACCOUNT: [id number] [id number] : [birth year] ADMISSION DATE: 02/15/17 REHABILITATION HISTORY AND PHYSICAL EXAMINATION POST ADMISSION PHYSICIAN EXAMINATION DATE OF ADMISSION: 02/15/2017 ADMITTING DIAGNOSES: Acute right subdural hematoma with cerebral edema. HISTORY OF PRESENT ILLNESS: The patient is admitted to the inpatient rehab with acute subdural hematoma with cerebral edema. She is an 81-year-old female who sees Dr. Loja. She has got a history of chronic atrial fibrillation, on Coumadin anticoagulation. She tripped at her home on a rug floor, hitting her left supraorbital ridge on the corner of a table. She was stunned, but not knocked out. She had marked bleeding from laceration, came to the ED in the afternoon. She was evaluated there and found to be on Coumadin. CT of her head was done. CT revealed a very small right parietal contusion with a subdural hematoma. She was admitted and a repeat scan in the morning showed significant progression up to 2 cm acute right-sided subdural hematoma with 14 mm midline shift. She was somewhat lethargic, but able to wake up and orient to self and place, as well as to follow commands. Neurosurgery was consulted. On February 10, she went to the OR for evacuation of this. Postop, she went to the ICU. She spent 6 days in the ICU, was moved to the med/surg floor. Prior to admit, she was independent with ADLs, drove a car and ambulated without assistance. Currently, she is moderate to max assist for ADLs and mobility. She has her left arm and hand weakness and feels like it is not working the way she wanted to. She had been having problems with loss of balance and requires cues to stay on task. She would definitely need inpatient rehab if there is any chance to return her back home. COMORBIDITIES: Include status post evacuation of subdural hematoma, contrecoup lesion of the brain, concussion without loss of consciousness, diabetes, hand weakness, Coumadin and coagulopathy, atrial fibrillation, fall with head injury, anemia, lethargy, peripheral neuropathy, diverticular disease, hypokalemia, peptic ulcer disease and glaucoma. PAST MEDICAL HISTORY: Significant for chronic AFib. She has been cardioverted 3 times, peptic ulcer disease, anemia and diverticular disease. She has diet-controlled diabetes and peripheral neuropathy. PAST SURGICAL HISTORY: Includes a ____ of some varicose veins, had colon surgery for a colovesicular fistula, incisional hernia repair, bilateral cataract surgery. ALLERGIES: CODEINE. CURRENT MEDICATIONS: She is on Coumadin 5 mg daily. She is on multivitamin daily, omega 3 daily. She is on Azopt eye drops daily. She is on B12 of 500 mcg daily. She is on Systane eye drops 1 drop t.i.d. as needed for dry eyes, Lopressor 25 mg b.i.d., Xalatan eye drops 1 drop q.h.s. She is on Tylenol 500 mg q.6 hours p.r.n. and polyethylene glycol 17 g in 8 ounces of water daily as needed. HABITS: No alcohol or tobacco use. HISTORY AND PHYSICAL [id number] WALE FRANKLIN FAMILY HISTORY: Noncontributory. SOCIAL HISTORY: The patient hopes to return back home. She lives with her granddaughter. REVIEW OF SYSTEMS: GENERAL: Does complain of weakness and fatigue. HEENT: Denies cold, cough or congestion. CARDIOVASCULAR: Denies chest pain. PHYSICAL EXAMINATION: VITAL SIGNS: Stable, afebrile. GENERAL: Elderly female in no acute distress, alert upon exam. HEENT: Does have well demarcated laceration and stephany hole to her forehead. She does have noted bruising and ecchymosis, which is expected from this. Her TMs appear normal. NECK: Supple with no lymphadenopathy. LUNGS: Clear at this time. HEART: Irregular rate and rhythm. ABDOMEN: Benign. EXTREMITIES: No clubbing, cyanosis or edema. NEUROLOGIC: Definitely is affected by this surgery and procedure.. LABORATORY DATA: Her white count 7000, H&H 12 and 37, and platelet count is 222. Her INR is 1.14. Sodium 141, potassium 3.6, BUN and creatinine of 9 and 0.5 and blood sugar is noted to be 112. ASSESSMENT: This is an 81-year-old female patient admitted to rehab with a working diagnosis of subdural hematoma, status post stephany hole fixation of this. The patient has potential to make improvement. We instituted the following multidisciplinary therapies including, but not limited to, physical, occupational, respiratory, speech, nutritional services, prosthetics and orthotics. Given her complex condition and risk for more complications, rehabilitation services cannot be provided at a lower level of care such as a detention facility. PLAN: 1. Admit to [facility] rehab for intensive inpatient therapy to include the following disciplines: A. Physical therapy to improve gait, all transfer skills and bed mobility to a modified independent level. B. Occupational therapy to improve activities of daily living to a modified independent level. C. Case management to assist with discharge planning and placement options. D. Nutrition to assist with nutritional needs. E. Rehabilitation nursing to assist in monitoring the patient's underlying medical conditions and to assist with any type of bowel or bladder management. 2. The patient's current medication and medical care will be continued. 3. The patient will be placed on standard fall precautions. 4. The patient's estimated length of stay is approximately 7-10 days. 5. Discuss this patient during care team staff meeting this week. TRANSINT:[id number] Voice Confirmation ID: [id number] DOCUMENT ID: [id number] HISTORY AND PHYSICAL [id number] WALE FRANKLIN notes whether there has been none or any medical/functional change since admission: - SALVADOR attests patient continues to be appropriate for IRF: - TAMMIE HUGHES MD at 0957 CC: [id number] DICTATION DATE: 02/16/[address] SCAN TECH: 02/16/17 1012 ADM IN [facility] [address] [place] [address]
--- NOTE | 2017-02-18 12:00 | NUR ---
SITTING UP IN CHAIR FOR LUNCH.DENIES NEEDS.
[2017-02-18 20:00] VITALS: BP 132/84
--- NOTE | 2017-02-18 20:00 | NUR ---
PT IN BED WITH HOB UP FOR COMFORT. RESTING QUIETLY. HEAD INCISION WITH JESSICA. LEFT EYEBROW SUTURES. LEFT SIDE OF FACE BRUISING. RIGHT ELBOW DRESSING C/D/I. MIN. ASSIST. NO 02. NO IV. BED ALARM ON. BED IN LOWEST POSITION AND CALL LIGHT WITHIN REACH.
--- NOTE | 2017-02-18 23:27 | NUR ---
PT. IN BED WITH HOB SLIGHTLY ELEVATED WITH EYES CLOSED AND RESP. EVEN. CALL LIGHT WITHIN REACH.
--- NOTE | 2017-02-19 | NUR ---
PT IN BED WITH HOB UP FOR COMFORT. EYES CLOSED. CHEST RISING AND FALLING. BED IN LOWEST POSITION AND CALL LIGHT WITHIN REACH.
--- NOTE | 2017-02-19 04:00 | NUR ---
ASSITED PT TO BATHROOM AND BACK TO BED. BED IN LOWEST POSITION AND CALL LIGHT WITHIN REACH.
[2017-02-19 07:04] LABS: BASOPHILS 0.5 % (0-2); EOSINOPHILS 2.6 % (0-7); HEMATOCRIT 36.5 % (36.0-48.0); HEMOGLOBIN 12.1 g/dL (12-16); IMMATURE GRANULOCYTES 0.4 % (0-5); LYMPHOCYTES 25.6 % (15-50); MCH 33.2 pg (26.0-34.0); MCHC 33.2 g/dL (31.0-37.0); MEAN PLATELET VOLUME 9.6 fL (7.4-10.4); MONOCYTES 12.2 % (2-11); NEUTROPHILS 58.7 % (40-80); PLATELET COUNT 322 10x3/uL (130-400); RBC 3.65 10x6/uL (4.00-5.40); RDW 13.3 % (11.5-14.5)
[2017-02-19 07:25] LABS: CALC OSMOLALITY 272 mosm/kg (275-300); CARBON DIOXIDE 27.8 mmol/L (21.0-32.0); CHLORIDE - SERUM 102 mmol/L (98-107); CREATININE - SERUM 0.5 mg/dL (0.6-1.3); GLUCOSE 104 mg/dL (74-106); POTASSIUM - SERUM 3.9 mmol/L (3.5-5.1); SODIUM 137 mmol/L (136-145); UREA NITROGEN 10 mg/dL (7-18); eGFR NON AFRICAN AMERICAN > 90 mL/min (90-120)
[2017-02-19 07:35] LABS: INR 1.28 (0.85-1.17); PROTIME 15.9 SECONDS (11.6-15.0)
--- NOTE | 2017-02-19 07:49 | NUR ---
PT UP EATING BREAKFAST, DENIES NEEDS.
[2017-02-19 07:51] VITALS: BP 163/89
--- NOTE | 2017-02-19 10:44 | NUR ---
PATIENT IN REHAB ROOM. WORKING WITH PHYSICAL THERAPIST. DENIES ANY PAIN/DISC AT THIS TIME.
--- NOTE | 2017-02-19 13:01 | NUR ---
PATIENT ALERT/ORIENT X3. SITTING UP IN A WHEELCHAIR IN ROOM. SUTURES TO TOP OF THE HEAD, LEFT SIDE OF THE HEAD, BY LEFT EYE. INTACT, NO DRAIAGE. NO SWELLING.
--- NOTE | 2017-02-19 15:42 | NUR ---
PATIENT HELPED BACK TO BED BY THIS NURSE. STAND BY ASST.
--- NOTE | 2017-02-19 17:55 | NUR ---
PATIENT SITTING UP ON THE SIDE OF THE BED TO EAT SUPPER. CALL LIGHT WITHIN REACH. VOICES NO NEEDS AT THIS TIME
--- NOTE | 2017-02-19 19:36 | NUR ---
PT RECEIVED IN UP IN WHEELCHAIR AT BEDSIDE READY TO GO TO BED. GRANDDAUGHTER IN ROOM. NURSE ASSISTED WITH TRANSFER MOD ASSIST TO BED. COMPLAINS OF 2/10 DISCOMFORT TO HEAD AND NECK AND REQUEST PRN TYLENOL WITH HS MEDICATIONS. NO OTHER NEEDS OR CONCERNS MADE KNOWN. CALL LIGHT IN REACH.
[2017-02-19 22:21] VITALS: BP 128/79
--- NOTE | 2017-02-20 00:36 | NUR ---
PT IN BED WITH EYES OPEN WATCHING TV. NO COMPLAINTS OR CONCERNS MADE KNOWN. CALL LIGHT IN REACH. WILL CONTINUE TO OBSERVE.
--- NOTE | 2017-02-20 02:27 | NUR ---
PT IN BED WITH EYES CLOSED AND CHEST RISING. NO SIGN/SYMPTOMS OF DISTRESS NOTED AT THIS TIME. CALL LIGHT IN REACH.
[2017-02-20 06:30] LABS: INR 1.7 (0.85-1.17); PROTIME 19.9 SECONDS (11.6-15.0)
--- NOTE | 2017-02-20 06:46 | NUR ---
PT IN BED WITH EYES CLOSED AND CHEST RISING. NO CONCERNS MADE KNOWN. CALL LIGHT IN REACH.
--- NOTE | 2017-02-20 07:19 | NUR ---
INTRODUCED SELF TO PT, PT STATES NO NEW NEEDS AT THIS TIME, WILL CONTINUE TO MONITOR, CALL LIGHT WITHIN REACHL.
--- NOTE | 2017-02-20 08:08 | NUR ---
PT EATING BREAKFAST, DENIES NEEDS. CL IN REACH.
[2017-02-20 08:43] VITALS: BP 151/79
--- NOTE | 2017-02-20 09:47 | NUR ---
MORNING MEDICATION GIVEN, ASSISTED PT TO BATHROOM AND BACK TO BED VIA WHEELCHAIR, PT TOLERATED WELL, WILL CONTINUE TO MONITOR, CALL LIGHT WITHIN REACH.
--- NOTE | 2017-02-20 12:13 | NUR ---
PT SITTING IN WHEELCHAIR WATCHING TV, PT STATES NO NEW NEEDS AT THIS TIME, WILL CONTINUE TO MONITOR, CALL LIGHT WITHIN REACH.
--- NOTE | 2017-02-20 13:58 | NUR ---
PT UP IN CHAIR WATCHING TV, PT STATES NO NEEDS AT THIS TIME, WILL CONTINUE TO MONITOR, CALL LIGHT WITHIN REACH.
--- NOTE | 2017-02-20 15:10 | NUR ---
NUTRITION MONITORING & EVAL CHART REVIEWED, PT VISIT. TOLERATING REG DIET, 100% INTAKE RECENT MEALS. WILL CONTINUE TO PROVIDE DIET, MONITOR PO INTAKE. RD FOLLOWING
[2017-02-20 18:54] VITALS: BP 174/87
--- NOTE | 2017-02-20 19:50 | NUR ---
PT RECEIVED IN BED WITH EYES OPEN. NO COMPLAINTS OR CONCERNS NOTED. CALL LIGHT IN REACH.
--- NOTE | 2017-02-20 22:30 | NUR ---
PT IN BED WITH EYES CLOSED AND CHEST RISING. RECEIVED HS MEDICATIONS PER MAR WITHOUT DIFFICULTY. NO CONCERNS NOTED AT THIS TIME. CALL LIGHT IN REACH.
--- NOTE | 2017-02-21 03:13 | NUR ---
PT IN BED WITH EYES CLOSED AND CHEST RISING. NO CONCERNS NOTED. CALL LIGHT IN REACH.
[2017-02-21 05:32] LABS: INR 1.95 (0.85-1.17); PROTIME 22.2 SECONDS (11.6-15.0)
[2017-02-21 08:00] VITALS: BP 137/70
--- NOTE | 2017-02-21 08:00 | NUR ---
SHIFT ASSMT COMPLETED.INCISION TO SCALP HEALING WELL.JESSICA INTACT.
--- NOTE | 2017-02-21 11:25 | NUR ---
PATIENT ADMITTED TO REHAB FROM ACUTE FLOOR. PLANS ARE FOR PATIENT TO RETURN HOME WITH HER FAMILY. SHE HAS NO DME AT HOME. HER PCP IS DR. RANGEL AND SHE USES [facility] AT [facility]. WILL CONTINUE TO FOLLOW WITH PATIENT.
--- NOTE | 2017-02-21 12:00 | NUR ---
SITTING UP EATING LUNCH.CL IN REACH.
--- NOTE | 2017-02-21 16:00 | NUR ---
RESTING QUIETLY.CL IN REACH.
--- NOTE | 2017-02-21 20:10 | NUR ---
PT. IN BED WITH HOB UP FOR COMFORT AND IS WATCHING TV. ASSESSMENT COMPLETED. NO VOICED NEEDS AT THIS TIME BUT THE BANDAGE ON HER RIGHT ELBOW HAS COME LOOSE. THIS WILL BE CHANGED DURING MED PASS. CALL LIGHT IS WITHIN REACH.
[2017-02-21 21:46] VITALS: BP 118/73
--- NOTE | 2017-02-21 23:14 | NUR ---
PT. IN BED WITH HOB UP FOR COMFORT WITH EYES CLOSED AND RESP. DEEP AND EVEN. CALL LIGHT WITHIN REACH.
--- NOTE | 2017-02-22 03:13 | NUR ---
ASSISTED PT. TO BR WHERE SHE URINATED, THEN BACK TO BED VIA W/C. PT. POSITIONED TO COMFORT AND HAS HER CALL LIGHT WITHIN REACH. NO ADDITIONAL NEEDS VOICED AT THIS TIME.
[2017-02-22 05:28] LABS: INR 1.95 (0.85-1.17); PROTIME 22.3 SECONDS (11.6-15.0)
[2017-02-22 08:00] VITALS: BP 128/55
--- NOTE | 2017-02-22 08:00 | NUR ---
SHIFT ASSMT COMPLETED
--- NOTE | 2017-02-22 12:00 | NUR ---
EATING LUNCH.DENIES NEEDS.
--- NOTE | 2017-02-22 16:00 | NUR ---
UP OOB TO BATHROOM;SHOWER Tken judah well.sitting up in wc
[2017-02-22 19:30] VITALS: BP 137/60
--- NOTE | 2017-02-22 20:00 | NUR ---
PT IN BED WITH HOB UP FOR COMFORT. RESTING QUIETLY. TV ON. ALERT & ORIENTED. NO O2. NO IV. BED AND CHAIR ALARM. BED IN LOWEST POSITION AND CALL LIGHT WIHTIN REACH.
--- NOTE | 2017-02-22 23:15 | NUR ---
RESTING IN BED, EYES CLOSED.
--- NOTE | 2017-02-23 | NUR ---
PT IN BED WITH HOB UP FOR COMFORT. EYES CLOSED. CHEST RISING AND FALLING. BED IN LOWEST POSITION AND CALL LIGHT WITHIN REACH.
--- NOTE | 2017-02-23 04:00 | NUR ---
PT IN BED WITH HOB UP FOR COMFORT. EYES CLOSED. RESPIRATIONS EVEN AND UNLABORED. BED IN LOWEST POSITION AND CALL LIGHT WIHTIN REACH.
[2017-02-23 06:49] LABS: INR 2.01 (0.85-1.17); PROTIME 22.8 SECONDS (11.6-15.0)
--- NOTE | 2017-02-23 08:00 | NUR ---
SHIFT ASSMT COMPLETED.DENIES NEEDS.ASSISTED UP OOB TO WC FOR BREAKFAST.CL IN REACH.
[2017-02-23 08:38] VITALS: BP 157/72
--- NOTE | 2017-02-23 12:00 | NUR ---
SITTING UP EATING LUNCH.
--- NOTE | 2017-02-23 16:00 | NUR ---
RESTING QUIETLY.CL IN REACH.
--- NOTE | 2017-02-23 19:55 | NUR ---
PT RECEIVED IN BED WATCHING TV. NO COMPLAINTS OR CONCERNS MADE KNOWN. CALL LIGHT IN REACH.
--- NOTE | 2017-02-23 23:02 | NUR ---
PT IN BED WITH EYES CLOSED AND CHEST RISING. NO SIGN/SYMPTOMS OF DISTRESS NOTED. CALL LIGHT IN REACH.
[2017-02-23 23:16] VITALS: BP 123/60
--- NOTE | 2017-02-24 03:08 | NUR ---
PT IN BED WITH EYES CLOSED AND CHEST RISING. NO CONCERNS NOTED AT THIS TIME. CALL LIGHT IN REACH.
--- NOTE | 2017-02-24 05:59 | NUR ---
PT IN BED WITH EYES CLOSED AND CHEST RISING. NO CONCERNS NOTED AT THIS TIME. CALL LIGHT IN REACH.
[2017-02-24 08:00] VITALS: BP 166/81
--- NOTE | 2017-02-24 08:14 | NUR ---
PATIENT SITTING UP IN BED TO EAT BREAKFAST. CALL LIGHT WITHIN REACH. VOICES NO NEEDS AT THIS TIME. ALERT/ORIENT X4
[2017-02-24 08:59] LABS: INR 2.26 (0.85-1.17)
--- NOTE | 2017-02-24 10:14 | NUR ---
PATIENT HAS VISITORS IN ROOM. VOICES NO NEEDS AT THIS TIME
--- NOTE | 2017-02-24 11:58 | NUR ---
PATIENT HELPED TO BATHROOM. STAND BY ASST FROM BED TO WHEELCHAIR AND WHEELCHAIR TO TOILET. ABLE TO DO OWN CHRISTIANO CARE. SITTING UP IN WHEELCHAIR TO EAT LUNCH. CALL LIGHT WITHIN REACH
--- NOTE | 2017-02-24 12:43 | NUR ---
PT UP EATING LUNCH, FAMILY AT BEDSIDE, DENIES NEEDS.
--- NOTE | 2017-02-24 13:40 | NUR ---
PATIENT HELPED WITH SHOWER FROM THIS NURSE. PATIENT ABLE TO DO MOST OF SHOWER WITH SET UP OF SUPPLIES.
--- NOTE | 2017-02-24 17:32 | NUR ---
PATIENT SITTING UP IN BED FOR SUPPER. DID NOT WANT TO GET INTO WHEELCHAIR.
--- NOTE | 2017-02-24 21:04 | NUR ---
PT RECEIVED IN BED WITH EYES CLOSED AND CHEST RISING. COMPLAINS OF DISCOMFORT TO HEAD AND NECK 2/10 WITH PRN TYLENOL GIVEN. NO OTHER NEEDS MADE KNOWN AT THIS TIME. CALL LIGHT IN REACH.
[2017-02-24 22:16] VITALS: BP 133/74
--- NOTE | 2017-02-24 23:32 | NUR ---
PT IN BED WITH EYES CLOSED AND CHEST RISING. NO CONCERNS NOTED AT THIS TIME. CALL LIGHT IN REACH.
--- NOTE | 2017-02-25 03:42 | NUR ---
PT IN BED WITH EYES CLOSED AND CHEST RISING. NO CONCERNS NOTED AT THIS TIME. CALL LIGHT IN REACH.
[2017-02-25 05:57] LABS: INR 2.49 (0.85-1.17); PROTIME 27.1 SECONDS (11.6-15.0)
--- NOTE | 2017-02-25 06:18 | NUR ---
PT IN BED WITH EYES CLOSED AND CHEST RISING. NO SIGN/SYMPTOMS OF DISTRESS NOTED. CALL LIGHT IN REACH.
--- NOTE | 2017-02-25 07:45 | NUR ---
PATIENT ALERT/ORIENT X4. SITTING UP IN WHEELCHAIR TO EAT BREAKFAST. CALL LIGHT WITHIN REACH. VOICES NO NEEDS AT THIS TIME
[2017-02-25 08:00] VITALS: BP 147/77
--- NOTE | 2017-02-25 10:27 | NUR ---
PATIENT TAKEN TO THE BATHROOM. INCONT OF URINE. BRIEF CHANGED. PATIENT ALBE TO DO OWN CHRISTIANO CARE. HELPED BACK TO BED. STAND BY TRANSFER FROM WHEELCHAIR ONTO BED. NEVIN ALARM ON WHEN IN BED. CALL LIGHT WITHIN REACH
--- NOTE | 2017-02-25 11:52 | NUR ---
PATIENT HELPED UP TO BATHROOM. SITTING UP FOR LUNCH IN WHEELCHAIR. CHAIR ALARM ON. CALL LIGHT WITHIN REACH.
--- NOTE | 2017-02-25 14:31 | NUR ---
PATIENT: SUBDURAL HEMATOMA. INCISION TO MID SCALP DOWN RIGHT SIDE OF HEAD. CLEAN AND DRY. OPEN TO AIR. NO SWELLING OR REDNESS. INCSION OVER LEFT EYEBROW, CLEAN AND DRY. NO SWELLING RO REDNESS
--- NOTE | 2017-02-25 17:35 | NUR ---
PATIENT VERY CONFUSED AFTER SHE WOKE UP. DIDN'T KNOW WHERE SHE IS. PATIENT HELPED INTO WHEELCHAIR FOR SUPPER. CHAIR ALARM ON
--- NOTE | 2017-02-25 19:54 | NUR ---
PT RECEIVED IN BED WATCHING TV. COMPLAINS OF DISCOMFORT TO HEAD AND NECK. NO OTHER NEEDS MADE KNOWN. CALL LIGHT IN REACH.
[2017-02-25 20:43] VITALS: BP 144/76
--- NOTE | 2017-02-26 00:20 | NUR ---
PT IN BED WITH EYES CLOSED AND CHEST RISING. NO CONCERNS NOTED. CALL LIGHT IN REACH.
--- NOTE | 2017-02-26 03:06 | NUR ---
PT IN BED WITH EYES OPEN. ASSISTED TO BATHROOM WITH MIN ASSIST. NO CONCERNS OR COMPLAINTS NOTED. CALL LIGHT IN REACH.
--- NOTE | 2017-02-26 07:53 | NUR ---
SITTING UP ON SIDE OF BED EATING BREAKFAST
--- NOTE | 2017-02-26 09:58 | NUR ---
DR KING NURSE NOTIFIED (VIA MESSAGE) OF PT INCISION ON BEING EVEN OR CLOSED AFTER JESSICA REMOVED.
[2017-02-26 10:44] VITALS: BP 143/78
--- NOTE | 2017-02-26 13:44 | NUR ---
BREANNA THOMPSON FROM DR KING'S OFFICE CAME TO LOOK AT PT'S INCISION ON HER HEAD. DONNA FELT LIKE NO INTERVENTION WAS NECCESSARY AND INCISION WOULD HEAL COMPLETELY ON ITS OWN. THERE IS NO S/S INFECTION TO INCISION ON TOP OF HEAD.
[2017-02-26 19:30] VITALS: BP 110/48
--- NOTE | 2017-02-26 20:00 | NUR ---
PT IN BED WITH HOB UP FOR COMFORT. WATCHING TV. BED IN LOWEST POSITION AND CALL LIGHT WIHTIN REACH.
--- NOTE | 2017-02-26 21:25 | NUR ---
PT RESPIRATIONS REGULAR AND UNLABORED, NO S/S OF ACUTE DISTRESS. EYES CLOSED.
--- NOTE | 2017-02-27 | NUR ---
PT IN BED WITH HOB UP FOR COMFORT. EYES CLOSED. RESPIRATIONS EVEN AND UNLABORED. BED IN LOWEST POSITION AND CALL LIGHT WITHIN REACH.
--- NOTE | 2017-02-27 04:00 | NUR ---
ASSISTED PT TO BATHROOM AND BACK TO BED.
--- NOTE | 2017-02-27 08:00 | NUR ---
SHIFT ASSMT COMPLETED.MEAL SET-UP PROVIDED.DENIES NEEDS.
[2017-02-27 09:10] VITALS: BP 160/87
--- NOTE | 2017-02-27 10:20 | NUR ---
NUTRITION MONITORING & EVAL CHART REVIEWED. PT WITH 75% INTAKE REG DIET. +BM CHARTED. WILL CONTINUE TO PROVIDE DIET, MONITOR PO INTAKE. RD FOLLOWING
--- NOTE | 2017-02-27 12:00 | NUR ---
SITTING UP EATING LUNCH.CL IN REACH.
--- NOTE | 2017-02-27 15:18 | NUR ---
CARE TEAM MEETING: PLANS ARE FOR PATIENT TO DISCHARGE HOME 03/02/17 HOME WITH FAMILY.WILL ARRANGE FOR HOME HALTH AND ANY DME NEEDS AT THE TIME OF DISCHARGE
[2017-02-27 19:05] VITALS: BP 157/84
--- NOTE | 2017-02-27 19:36 | NUR ---
PT IS RESTING IN BED WITH EYES OPEN. ALERT AND ORIENTED X 3. DENIES ACUTE DISCOMFORT AT THIS TIME. INCISION TO MID SCALP IS CDI. NO DRAINAGE NOTED. SR'S ARE UP X 3 IN BED. CALL LIGHT AND BEDSIDE TABLE ARE WITHIN EASY REACH.
--- NOTE | 2017-02-27 22:10 | NUR ---
PT IS RESTING QUIETLY IN BED WITH EYES CLOSED. RESPS ARE EVEN AND UNLABORED. NO ACUTE DISTRESS NOTED.
--- NOTE | 2017-02-27 23:12 | NUR ---
PT. IN BED WITH HOB UP FOR COMFORT WITH EYES CLOSED AND RESP. DEEP AND EVEN. CALL LIGHT WITHIN REACH.
--- NOTE | 2017-02-27 23:27 | NUR ---
RESTING IN BED WITH EYES CLOSED.
--- NOTE | 2017-02-28 02:08 | NUR ---
RESTING IN BED WITH EYES CLOSED.
--- NOTE | 2017-02-28 06:00 | NUR ---
PT RESTING IN BED WITH EYES CLOSED. AWOKE EASILY TO VERBAL STIMULI. SHE DENIES ACUTE PAIN OR DISCOMFORT. ASSISTED TO THE BATHROOM WITH SBA. VOIDED WITHOUT DIFFICULTY.
--- NOTE | 2017-02-28 08:00 | NUR ---
SHIFT ASSMT COMPLETED.DENIES NEEDS.UP OOB IN WC FOR BREAKFAST.
[2017-02-28 09:05] VITALS: BP 184/89
[2017-02-28 10:30] LABS: INR 2.08 (0.85-1.17); PROTIME 23.4 SECONDS (11.6-15.0)
--- NOTE | 2017-02-28 12:00 | NUR ---
SITTING UP EATING LUNCH.
--- NOTE | 2017-02-28 20:07 | NUR ---
PT RECEIVED IN BED WITH EYES OPEN WATCHING TV. NO NEEDS OR CONCERNS MADE KNOWN. CALL LIGHT IN REACH.
[2017-02-28 20:15] VITALS: BP 168/81
--- NOTE | 2017-03-01 01:22 | NUR ---
PT IN BED WITH EYES CLOSED AND CHEST RISING. NO CONCERNS NOTED AT THIS TIME. CALL LIGHT IN REACH.
[2017-03-01 05:43] LABS: INR 2.23 (0.85-1.17); PROTIME 24.7 SECONDS (11.6-15.0)
--- NOTE | 2017-03-01 06:42 | NUR ---
PT IN BED WITH EYES CLOSED AND CHEST RISING. NO CONCERNS NOTED AT THIS TIME. CALL LIGHT IN REACH.
--- NOTE | 2017-03-01 07:30 | NUR ---
SITTING UP IN BED READING PAPER. DENIES NEEDS. CALL LIGHT IN REACH
[2017-03-01 08:23] VITALS: BP 148/84
--- NOTE | 2017-03-01 13:08 | NUR ---
ATE LUNCH AND NOW LAYING DOWN IN BED. CALL LIGHT IN REACH
--- NOTE | 2017-03-01 15:33 | NUR ---
WORKING WITH O.TBrandyn IN PT'S ROOM
[2017-03-01 19:00] VITALS: BP 156/83
--- NOTE | 2017-03-01 19:26 | NUR ---
PT RECEIVED IN BED WITH EYES OPEN WATCHING TV. NO CONCERN NOTED MADE KNOWN. CALL LIGHT IN REACH.
--- NOTE | 2017-03-02 00:41 | NUR ---
PT IN BED WITH EYES CLOSED AND CHEST RISING. NO CONCERNS NOTED. CALL LIGHT IN REACH.
--- NOTE | 2017-03-02 05:49 | NUR ---
PT IN BED WITH EYES OPEN WATCHING TV. NO CONCERNS NOTED. CALL LIGHT IN REACH.
[2017-03-02 06:40] LABS: INR 2.13 (0.85-1.17); PROTIME 23.9 SECONDS (11.6-15.0)
--- NOTE | 2017-03-02 07:04 | NUR ---
RESTING QUIETLY IN BED. EYES CLOSED. CALL LIGHT IN REACH
--- NOTE | 2017-03-02 10:07 | NUR ---
PATIENT DISCHARGING HOME TODAY WITH [facility] TO FOLLOW. DOROTHEA WILL DELIVER A ROLLING WALKER TO PATIENT . DR. RANGEL 03/12/17 @ 10:00 , DR. KING 03/16/17 @ 10:45, AND PRIOR TO APPOINTMENT PATIENT TO BE AT [facility] OUTPATIENT @ 8:[address] OF HEAD ON 03/16/17. PATIENT CHOICE FORM FOR HOME HEALTH AND [facility] FORM SIGNED, EXPLIANED AND FILED IN CHART
[2017-03-02 10:54] VITALS: BP 151/73
--- NOTE | 2017-03-02 12:04 | NUR ---
SITTING UP IN W/C IN ROOM EATING LUNCH. FEEDS SELF EASILY. ABLE TO USE WALKER TO AMBULATE TO BATHROOM.
--- NOTE | 2017-03-02 16:06 | NUR ---
D/C HOME WITH ALL PERSONAL BELONGINGS. GRAND DAUGHTER CAME AND GOT PT. WENT OVER D/C INSTRUCTIONS WITH GRAND DAUGHTER. PT ALREADY HAD ROLLING WALKER DELIVERED TO HER ROOM. LEFT FLOOR IN W/C .
== END 2017-03-02 16:08 | disposition home health service (06) | DRG 949 ==
LOC: D.REHAB 15:53
PROVIDERS: Family Medicine; ADMIT Emergency Medicine
DX: S06.5X0D Traumatic subdural hemorrhage without loss of consciousness, subsequent encounter (principal); G93.6 Cerebral edema; S06.0X0D Concussion without loss of consciousness, subsequent encounter; W18.31XD Fall on same level due to stepping on an object, subsequent encounter; I48.91 Unspecified atrial fibrillation; E11.9 Type 2 diabetes mellitus without complications; Z79.01 Long term (current) use of anticoagulants; I10 Essential (primary) hypertension; R53.1 Weakness; D64.9 Anemia, unspecified; R53.83 Other fatigue; G62.9 Polyneuropathy, unspecified; K27.9 Peptic ulcer, site unspecified, unspecified as acute or chronic, without hemorrhage or perforation; H40.9 Unspecified glaucoma

== ENCOUNTER → 2017-03-16 08:13 | Outpatient (CLI) | payer MEDICARE, BC ==
[2017-02-16 14:34] VITALS: BMI 26.6
== END | disposition home or self-care (01) ==
LOC: D.CT 08:00
DX: S06.5X0A Traumatic subdural hemorrhage without loss of consciousness, initial encounter (principal)

== ENCOUNTER 2018-05-03 08:51 | Emergency (ER) | payer MEDICARE, BC ==
[~2018-05-03] VITALS: Ht 167.6 cm; Wt 65.9 kg
[2018-05-03 08:53] VITALS: Ht 167.6 cm; Wt 65.9 kg
[2018-05-03] MEDS ORDERED: SIMBRINZA 1%-0.28 ML EACH EYE (08:55)
[2018-05-03 10:51] VITALS: BP 195/88
== END 2018-05-03 10:55 | disposition home or self-care (01) ==
LOC: D.ER 08:51
DX: S00.03XA Contusion of scalp, initial encounter (principal); W18.30XA Fall on same level, unspecified, initial encounter; Y93.89 Activity, other specified; Y92.019 Unspecified place in single-family (private) house as the place of occurrence of the external cause; E11.9 Type 2 diabetes mellitus without complications; I48.91 Unspecified atrial fibrillation; Z79.01 Long term (current) use of anticoagulants